=== PATIENT | female | born 1930 | race Caucasian/White ===

== ENCOUNTER 2018-12-07 08:54 | Inpatient (IN) | payer MEDICARE, MEDICAID ==
[~2018-12-07] VITALS: Ht 157.5 cm; Wt 85.3 kg
[~2018-12-07 08:54] MED LIST: ALBU2.5V13 NEB; AMLO10TA80 PO; ATOR10TA69 PO; CITA10TA9 PO; FURO40TA5 PO; LEVO250T2 PO; LEVO50TA8 PO; MEMA1CAP MT; METH4TAB PO; NONFORMULARY; QUET50TA PO; RIVA10TA PO; RIVA1PAT3 TP; TIOT18CA3 INH; levemir SQ
[2018-12-07 09:42] LABS: BASOPHILS % 0.4 % (0.0-2.0); EOSINOPHILS % 4.2 % (0.0-5.0); HEMATOCRIT. 37.8 % (36.0-48.0); HEMOGLOBIN. 12.4 g/dL (12.0-16.0); LYMPHOCYTES % 29.8 % (20.0-50.0); MEAN CORPUSCULAR HEMOGLOBIN 29.9 pg (28.0-32.0); MEAN CORPUSCULAR VOLUME 90.8 fL (81.0-99.0); MEAN PLATELET VOLUME 9.1 fl (7.4-10.4); MONOCYTES % 7.3 % (2.0-8.0); NEUTROPHILS % 58.3 % (40.0-76.0); PLATELET 168 x1000/uL (130-400); RED BLOOD CELL COUNT 4.17 mill/uL (4.2-5.4); RED CELL DISTRIBUTION WIDTH 15.8 % (11.6-14.6)
[2018-12-07 11:03] LABS: CHLORIDE 101 mEq/L (98-107)
[2018-12-07 13:49] VITALS: BP 117/49
[2018-12-07] MEDS ORDERED: DEXTROSE 50% WATER 50ML SYRINGE IV PRN (16:15)
[2018-12-07] MEDS ORDERED: IPRATROPIUM/ALBUTEROL 0.5-3(2.5)MG/3ML NEB HHN PRN (16:15)
[2018-12-07] MEDS ORDERED: ENOXAPARIN 40MG/0.4ML SYR SUBCUT SCH (16:15)
[2018-12-07] MEDS ORDERED: MORPHINE SULFATE 2 MG/ML CPJ (NOT FOR IM USE) IV PRN (16:15)
[2018-12-07] MEDS ORDERED: MAGNESIUM/ALUMINUM HYDROXIDE/SIMETHICONE 30ML UDC PO PRN (16:15)
[2018-12-07] MEDS ORDERED: ACETAMINOPHEN 325MG TABLET PO PRN (16:15)
[2018-12-07] MEDS ORDERED: CLONIDINE 0.1MG TABLET PO PRN (17:15)
[2018-12-07] MEDS ORDERED: ONDANSETRON HCL 4MG/2ML INJ IV PRN (17:15)
[2018-12-07] MEDS ORDERED: DIPHENHYDRAMINE 50MG/ML VIAL IV PRN (17:15)
[2018-12-07] MEDS: INSULIN LISPRO 100 UNITS/ML SUBCUT SCH ×2 (17:40→20:58)
[2018-12-07] MEDS: RIVAROXABAN 15 MG TABLET PO SCH (17:57)
[2018-12-07] MEDS: BLOOD SUGAR DIAGNOSTIC STRIP TEST SCH ×2 (18:06→20:58)
[2018-12-07 20:00] VITALS: BP 112/52
[2018-12-07] MEDS: SODIUM CHLORIDE 0.9% INJ 3ML FLUSH IVF SCH (21:42)
[2018-12-08] MEDS: ATORVASTATIN CALCIUM 10MG TABLET PO SCH ×2 (02:43→23:10)
[2018-12-08] MEDS: INSULIN GLARGINE UD 100 UNITS/ML SYR SUBCUT SCH ×2 (02:48→23:08)
[2018-12-08 04:00] VITALS: BP 130/45
[2018-12-08] MEDS: LEVOTHYROXINE SODIUM 50MCG TABLET PO SCH (07:15)
[2018-12-08] MEDS: SODIUM CHLORIDE 0.9% INJ 3ML FLUSH IVF SCH ×3 (07:15→23:11)
[2018-12-08] MEDS: INSULIN LISPRO 100 UNITS/ML SUBCUT SCH ×4 (07:21→23:07)
[2018-12-08] MEDS: BLOOD SUGAR DIAGNOSTIC STRIP TEST SCH ×4 (07:21→21:00)
[2018-12-08 08:00] VITALS: BP 121/68
[2018-12-08] MEDS: RIVASTIGMINE 9.5MG/24HR PATCH TD SCH (10:13)
[2018-12-08] MEDS: MEMANTINE HCL 5MG TABLET PO SCH (10:16)
[2018-12-08] MEDS: CITALOPRAM HYDROBROMIDE 10MG TABLET PO SCH (10:17)
[2018-12-08 12:00] VITALS: BP 146/56
[2018-12-08 16:00] VITALS: BP 132/64
[2018-12-08] MEDS: RIVAROXABAN 15 MG TABLET PO SCH (18:03)
[2018-12-08 20:00] VITALS: BP 143/72
[2018-12-09] VITALS: BP 149/69
[2018-12-09 04:00] VITALS: BP 122/75
[2018-12-09] MEDS: SODIUM CHLORIDE 0.9% INJ 3ML FLUSH IVF SCH (06:50)
[2018-12-09 07:54] VITALS: BP 131/80
[2018-12-09] MEDS: MEMANTINE HCL 5MG TABLET PO SCH (08:18)
[2018-12-09] MEDS: RIVASTIGMINE 9.5MG/24HR PATCH TD SCH (08:18)
[2018-12-09] MEDS: LEVOTHYROXINE SODIUM 50MCG TABLET PO SCH (08:18)
[2018-12-09] MEDS: CITALOPRAM HYDROBROMIDE 10MG TABLET PO SCH (08:18)
[2018-12-09] MEDS: BLOOD SUGAR DIAGNOSTIC STRIP TEST SCH ×2 (11:30→12:10)
[2018-12-09 12:00] VITALS: BP 130/70
[2018-12-09] MEDS: INSULIN LISPRO 100 UNITS/ML SUBCUT SCH ×2 (12:00→12:40)
[2018-12-09] MEDS ORDERED: LEVVL SQ ×2 (12:51)
[2018-12-09] MEDS ORDERED: AMLO-504 PO (12:57)
[2018-12-09] MEDS ORDERED: BRIN8DRO EACHEYE (12:57)
[2018-12-09] MEDS ORDERED: DOCU-150 PO (12:57)
[2018-12-09] MEDS ORDERED: CYCL30DR EACHEYE (12:57)
[2018-12-09] MEDS ORDERED: ALBU18HF2 IH (12:57)
[2018-12-09] MEDS ORDERED: BUDE6.9H INH (12:57)
[2018-12-09] MEDS ORDERED: OLOP2.5D6 EACHEYE (12:57)
[2018-12-09] MEDS ORDERED: FLUT15.88 BOTHNSTRLS (12:59)
[2018-12-09] MEDS ORDERED: LIRA0.6P SQ (12:59)
[2018-12-09] MEDS ORDERED: FISH PO (13:00)
[2018-12-09] MEDS ORDERED: MULT-1146 PO (13:00)
[2018-12-09 13:51] VITALS: BP 130/70
== END 2018-12-09 15:15 | disposition home or self-care (01) | DRG 203 ==
LOC: ER 09:07 → 8WST 11:27 → ENRESERV 12:23
PROVIDERS: ADMIT Internal Medicine; ATTEND Internal Medicine
DX: R07.89 Other chest pain (principal); I48.20 Chronic atrial fibrillation, unspecified; E11.9 Type 2 diabetes mellitus without complications; J44.9 Chronic obstructive pulmonary disease, unspecified; F03.90 Unspecified dementia, unspecified severity, without behavioral disturbance, psychotic disturbance, mood disturbance, and anxiety; R41.89 Other symptoms and signs involving cognitive functions and awareness; E03.9 Hypothyroidism, unspecified; E78.5 Hyperlipidemia, unspecified; E66.9 Obesity, unspecified; M19.90 Unspecified osteoarthritis, unspecified site; I10 Essential (primary) hypertension; F17.200 Nicotine dependence, unspecified, uncomplicated; Z82.49 Family history of ischemic heart disease and other diseases of the circulatory system; Z83.3 Family history of diabetes mellitus; Z87.01 Personal history of pneumonia (recurrent); F32.9 Major depressive disorder, single episode, unspecified; Z68.34 Body mass index [BMI] 34.0-34.9, adult; Z79.84 Long term (current) use of oral hypoglycemic drugs
CPT/HCPCS: 36415; 71045; 82962; 83880; 84484; 93005; 93306; 99285; J1815; J2270

== ENCOUNTER 2019-10-23 09:41 | Inpatient (IN) | payer MEDICARE, MEDICAID ==
[~2019-10-23] VITALS: Ht 157.5 cm; Wt 93.0 kg
[~2019-10-23 09:41] MED LIST changes: +ALBU18HF2 IH; -ALBU2.5V13 NEB; +AMLO-504 MT; +AMLO-504 PO; -AMLO10TA80 PO; +BRIN8DRO EACHEYE; +BUDE6.9H INH; -CITA10TA9 PO; +CYCL30DR EACHEYE; +CYCL30DR OP; +DOCU-150 PO; +DOCU-272 PO; +FISH PO; +FLUT15.844 BOTHNSTRLS; +GABA-529 PO; +HYDR-4135 MT; -LEVO250T2 PO; +LEVO50TA8 MT; +LEVVL SQ; +LIRA0.6P SQ; +LIRA0.6P2 SQ; +MEMA10TA55 PO; -MEMA1CAP MT; -METH4TAB PO; +MULT-1146 PO; +MULT-1203 PO; +OLOP2.5D6 EACHEYE; +OLOP2.5D6 OP; +QUET50TA21 PO; +RIVA1PAT3 TD; -RIVA1PAT3 TP; -TIOT18CA3 INH; +UMEC1DIS INH; -levemir SQ; +xarelto PO
[2019-10-23] MEDS ORDERED: PIPERACILLIN/TAZ 3.375G PREMIX 50 ML IV ONE (10:00)
[2019-10-23] MEDS ORDERED: VANCOMYCIN 1 G PREMIX 200 ML IV ONE (10:00)
[2019-10-23] MEDS ORDERED: PROPOFOL 10MG/ML 100ML 100 ML IV ONE ×2 (10:10→10:45)
[2019-10-23] MEDS ORDERED: ACETAMINOPHEN 650MG SUPP PR STA (10:33)
[2019-10-23] MEDS ORDERED: NOREPINEPHRINE 8MG/250ML PMX 250 ML IV STA (10:33)
[2019-10-23] MEDS ORDERED: SODIUM CHLORIDE 0.9% 1000ML BAG (SEPSIS BOLUS) IV ONE (10:45)
[2019-10-23 10:50] LABS: HEMATOCRIT. 28.1 % (36.0-48.0); HEMOGLOBIN. 9.2 g/dL (12.0-16.0); MEAN CORPUSCULAR VOLUME 94.7 fL (81.0-99.0); MEAN PLATELET VOLUME 9.1 fl (7.4-10.4); PLATELET 143 x1000/uL (130-400); RED BLOOD CELL COUNT 2.97 mill/uL (4.2-5.4); RED CELL DISTRIBUTION WIDTH 20.3 % (11.6-14.6)
[2019-10-23 10:57] LABS: CHLORIDE 108 mEq/L (98-107)
[2019-10-23 10:59] LABS: INR 1.2; PROTHROMBIN TIME 12.4 sec (9.6-11.0)
[2019-10-23 11:02] LABS: BG BASE EXCESS 13.1 mmol/L (-2.0-2.0); BG CARBOXYHEMOGLOBIN 0.1 % (0.5-1.5); BG DEOXYHEMOGLOBIN 1.1 % (0.0-5.0); BG HCO3 ACT 37.6 mmol/L (22.0-26.0); BG METHEMOGLOBIN 0.5 % (0.0-1.5); BG OXYGEN SATURATION 98.9 % (92.0-98.5); BG OXYHEMOGLOBIN 98.3 % (94.0-97.0); BG PCO2 48.9 mmHg (35.0-45.0); BG PH 7.504 (7.350-7.450); BG PO2 179.7 mmHg (75.0-100.0); BG SAMPLE SITE RIGHT BRACHIAL; BG TIDAL VOLUME(mL) 500 mL; BG TOTAL HEMOGLOBIN 8.9 g/dL (12.0-18.0); BG VENT MODE VENT - A/C; BG VENT RATE 16 set
[2019-10-23 11:12] LABS: CLARITY URINE CLEAR (CLEAR); COLOR URINE YELLOW (YELLOW); KETONES URINE NEGATIVE (NEGATIVE); LEUKOCYTE ESTERASE URINE 1+ (NEGATIVE); NITRITE URINE POSITIVE (NEGATIVE); OCCULT BLOOD URINE 2+ (NEGATIVE); PROTEIN URINE 1+ (NEGATIVE); SPECIFIC GRAVITY URINE 1.017 (1.005-1.030)
[2019-10-23 11:54] LABS: PLATELET ESTIMATE NORMAL
[2019-10-23] MEDS ORDERED: KCL 10MEQ/50ML PREMIX 50 ML IV SCH (12:00)
[2019-10-23] MEDS ORDERED: PIPERACILLIN/TAZ 3.375G PREMIX 50 ML IV SCH (13:15)
[2019-10-23] MEDS ORDERED: GUAIFENESIN 200MG/10ML SUGAR FREE UDC PO PRN (13:15)
[2019-10-23] MEDS ORDERED: PHENYLEPHRINE 50 MG in DEXT 5% WATER 245 ML IV PRN (13:15)
[2019-10-23] MEDS ORDERED: NITROGLYCERIN 0.4MG TABLET SL SL PRN (13:15)
[2019-10-23] MEDS ORDERED: ACETAMINOPHEN 325MG TABLET PO PRN ×2 (13:15)
[2019-10-23] MEDS ORDERED: IPRATROPIUM/ALBUTEROL 0.5-3(2.5)MG/3ML NEB NEB PRN (13:15)
[2019-10-23] MEDS ORDERED: ONDANSETRON HCL 4MG/2ML INJ IV PRN (13:15)
[2019-10-23] MEDS ORDERED: MAGNESIUM/ALUMINUM HYDROXIDE/SIMETHICONE 30ML UDC PO PRN (13:15)
[2019-10-23] MEDS ORDERED: DEXTROSE 50% WATER 50ML SYRINGE IV PRN (13:15)
[2019-10-23] MEDS ORDERED: DOCUSATE SODIUM 100MG CAPSULE PO PRN (13:15)
[2019-10-23 13:38] LABS: T4 FREE 1.2 ng/dL (0.76-1.46)
[2019-10-23] MEDS: BLOOD SUGAR DIAGNOSTIC STRIP TEST SCH ×3 (13:55→21:57)
[2019-10-23] MEDS: INSULIN LISPRO 100 UNITS/ML SUBCUT SCH ×3 (13:59→21:00)
[2019-10-23 14:46] LABS: FOLIC ACID (FOLATE) SERUM >20 ng/mL ng/mL (>5.38)
[2019-10-23 14:57] LABS: VITAMIN B12 SERUM 947 pg/mL (211-911)
[2019-10-23] MEDS: IPRATROPIUM/ALBUTEROL 0.5-3(2.5)MG/3ML NEB HHN SCH ×2 (16:05→20:10)
[2019-10-23] MEDS: ENOXAPARIN 30MG/0.3ML SYR SUBCUT SCH (17:02)
[2019-10-23] MEDS: PIPERACILLIN/TAZOBACTAM 2.25 G in DEXTROSE 5% WATER 50 ML IV SCH ×2 (17:10→23:51)
[2019-10-23] MEDS ORDERED: SODIUM CHLORIDE 0.9% 500 ML IV NR (18:26)
[2019-10-23] MEDS ORDERED: FUROSEMIDE 20MG/2ML VIAL IVP NR (18:26)
[2019-10-23] MEDS ORDERED: ALBUMIN HUMAN 25GM/100ML (25%) IV NR (19:00)
[2019-10-23] MEDS ORDERED: SODIUM CHLORIDE 0.9% 10ML VIAL ONE (20:12)
[2019-10-23] MEDS ORDERED: VECURONIUM BROMIDE 10 MG/VIAL IV ONE (20:12)
[2019-10-23] MEDS ORDERED: ETOMIDATE 2MG/ML 10ML VIAL IV ONE (20:12)
[2019-10-23] MEDS: ASCORBIC ACID 500 MG TABLET PO SCH (21:00)
[2019-10-23] MEDS: PHENYLEPHRINE 50 MG in DEXT 5% WATER 245 ML IV PRN (23:52)
[2019-10-24] VITALS (64 sets, daily range): BP systolic 73–126; BP diastolic 39–70
[2019-10-24] MEDS: PIPERACILLIN/TAZOBACTAM 2.25 G in DEXTROSE 5% WATER 50 ML IV SCH ×4 (03:00→21:22)
[2019-10-24] MEDS: IPRATROPIUM/ALBUTEROL 0.5-3(2.5)MG/3ML NEB HHN SCH ×5 (04:32→19:40)
[2019-10-24] MEDS: BLOOD SUGAR DIAGNOSTIC STRIP TEST SCH ×4 (06:30→21:00)
[2019-10-24] MEDS: INSULIN LISPRO 100 UNITS/ML SUBCUT SCH ×5 (07:00→23:00)
[2019-10-24] MEDS ORDERED: VANCOMYCIN 750 MG PREMIX 150 ML IV SCH (08:00)
[2019-10-24] MEDS ORDERED: INSULIN LISPRO 100 UNITS/ML SUBCUT NR (08:04)
[2019-10-24] MEDS: PROPOFOL 10MG/ML 100ML 100 ML IV SCH ×2 (09:00→13:16)
[2019-10-24 09:34] LABS: BG CARBOXYHEMOGLOBIN 0.3 % (0.5-1.5); BG FRACTION INSPIRED OXYGEN 60; BG HCO3 ACT 30.8 mmol/L (22.0-26.0); BG METHEMOGLOBIN 0.1 % (0.0-1.5); BG OXYHEMOGLOBIN 98.6 % (94.0-97.0); BG PCO2 31.9 mmHg (35.0-45.0); BG PH 7.603 (7.350-7.450); BG PO2 227.2 mmHg (75.0-100.0); BG SAMPLE SITE RIGHT RADIAL; BG TIDAL VOLUME(mL) 500 mL; BG TOTAL HEMOGLOBIN 10.1 g/dL (12.0-18.0); BG VENT MODE VENT - A/C; BG VENT RATE 14 set
[2019-10-24] MEDS: ASPIRIN 81MG EC TABLET PO SCH (10:10)
[2019-10-24] MEDS: ASCORBIC ACID 500 MG TABLET PO SCH ×2 (10:10→21:00)
[2019-10-24] MEDS: ZINC SULFATE 220 MG ( 50 ) CAPSULE PO SCH (10:10)
[2019-10-24] MEDS: PANTOPRAZOLE SODIUM 40 MG/VIAL IV SCH (10:10)
[2019-10-24] MEDS: ENOXAPARIN 30MG/0.3ML SYR SUBCUT SCH (10:11)
[2019-10-24 10:12] LABS: HEMATOCRIT. 30.6 % (36.0-48.0); HEMOGLOBIN. 9.8 g/dL (12.0-16.0); MEAN CORPUSCULAR HEMOGLOBIN 29.6 pg (28.0-32.0); MEAN CORPUSCULAR VOLUME 92.7 fL (81.0-99.0); MEAN PLATELET VOLUME 9.1 fl (7.4-10.4); PLATELET 112 x1000/uL (130-400); RED CELL DISTRIBUTION WIDTH 20.3 % (11.6-14.6)
[2019-10-24 10:19] LABS: CHLORIDE 108 mEq/L (98-107)
[2019-10-24 10:25] LABS: PHOSPHORUS 2.4 mg/dL (2.5-4.9)
[2019-10-24] MEDS ORDERED: SODIUM CHLORIDE 0.9% 500 ML IV ONE (10:30)
[2019-10-24 11:06] LABS: PLATELET ESTIMATE SLIGHTLY DECREASED
[2019-10-24] MEDS ORDERED: POTASSIUM CHLORIDE INJ 40 MEQ in DEXT 5% WATER 500 ML IV NR ×2 (12:00→16:00)
[2019-10-24] MEDS ORDERED: DOPAMINE 800MG PREMIX (DOUBLE) 250 ML IV PRN (12:30)
[2019-10-24] MEDS: PHENYLEPHRINE 50 MG in DEXT 5% WATER 245 ML IV PRN (16:16)
[2019-10-24] MEDS: PROPOFOL 10MG/ML 100ML 100 ML IV PRN (17:18)
[2019-10-24] MEDS ORDERED: POTASSIUM CHLORIDE 20MEQ TABLET SR PO NR (17:45)
[2019-10-24] MEDS ORDERED: VANCOMYCIN 1 G PREMIX 200 ML IV SCH (18:00)
[2019-10-25] VITALS (109 sets, daily range): BP systolic 59–137; BP diastolic 30–78
[2019-10-25] MEDS: IPRATROPIUM/ALBUTEROL 0.5-3(2.5)MG/3ML NEB HHN SCH ×6 (00:03→19:46)
[2019-10-25] MEDS: PIPERACILLIN/TAZOBACTAM 2.25 G in DEXTROSE 5% WATER 50 ML IV SCH ×4 (03:00→22:06)
[2019-10-25] MEDS: PROPOFOL 10MG/ML 100ML 100 ML IV PRN ×4 (05:00→22:46)
[2019-10-25] MEDS: PHENYLEPHRINE 50 MG in DEXT 5% WATER 245 ML IV PRN ×3 (05:41→19:27)
[2019-10-25] MEDS: INSULIN LISPRO 100 UNITS/ML SUBCUT SCH ×4 (06:52→22:33)
[2019-10-25] MEDS ORDERED: POTASSIUM CHLORIDE INJ 40 MEQ in DEXT 5% WATER 500 ML IV NR (07:00)
[2019-10-25] MEDS: BLOOD SUGAR DIAGNOSTIC STRIP TEST SCH ×4 (07:50→21:00)
[2019-10-25 09:10] LABS: HEMOGLOBIN 9.1 g/dL (12.0-16.0); MEAN CORPUSCULAR HEMOGLOBIN 29.3 pg (28.0-32.0); MEAN CORPUSCULAR VOLUME 92.9 fL (81.0-99.0); PLATELET 96 x1000/uL (130-400); RED BLOOD CELL COUNT 3.12 mill/uL (4.2-5.4); RED CELL DISTRIBUTION WIDTH 20.5 % (11.6-14.6)
[2019-10-25] MEDS: ZINC SULFATE 220 MG ( 50 ) CAPSULE PO SCH (09:32)
[2019-10-25] MEDS: ASPIRIN 81MG EC TABLET PO SCH (09:32)
[2019-10-25] MEDS: PANTOPRAZOLE SODIUM 40 MG/VIAL IV SCH (09:32)
[2019-10-25] MEDS: ASCORBIC ACID 500 MG TABLET PO SCH ×2 (09:32→22:07)
[2019-10-25] MEDS: ENOXAPARIN 30MG/0.3ML SYR SUBCUT SCH (09:32)
[2019-10-25 10:43] LABS: BG BASE EXCESS 1.5 mmol/L (-2.0-2.0); BG CARBOXYHEMOGLOBIN 0.2 % (0.5-1.5); BG DEOXYHEMOGLOBIN 1.7 % (0.0-5.0); BG FRACTION INSPIRED OXYGEN 40; BG HCO3 ACT 24.1 mmol/L (22.0-26.0); BG METHEMOGLOBIN 0.5 % (0.0-1.5); BG OXYGEN SATURATION 98.3 % (92.0-98.5); BG OXYHEMOGLOBIN 97.6 % (94.0-97.0); BG PCO2 30.8 mmHg (35.0-45.0); BG PH 7.512 (7.350-7.450); BG PO2 145.2 mmHg (75.0-100.0); BG SAMPLE SITE RIGHT RADIAL; BG TIDAL VOLUME(mL) 500 mL; BG TOTAL HEMOGLOBIN 9.9 g/dL (12.0-18.0); BG VENT MODE VENT - A/C; BG VENT RATE 14 set
[2019-10-25] MEDS ORDERED: INSULIN GLARGINE UD 100 UNITS/ML SYR SUBCUT SCH (12:00)
[2019-10-25] MEDS ORDERED: VANCOMYCIN 750 MG PREMIX 150 ML IV SCH (14:30)
[2019-10-25] MEDS: VANCOMYCIN 750 MG PREMIX 150 ML IV SCH (18:09)
[2019-10-25] MEDS ORDERED: POTASSIUM PHOS,M-BASIC-D-BASIC 15 MMOL in DEXT 5% WATER 245 ML IV NR (20:00)
[2019-10-26] VITALS (91 sets, daily range): BP systolic 87–136; BP diastolic 37–80
[2019-10-26] MEDS: IPRATROPIUM/ALBUTEROL 0.5-3(2.5)MG/3ML NEB HHN SCH ×7 (00:01→23:53)
[2019-10-26] MEDS: PHENYLEPHRINE 50 MG in DEXT 5% WATER 245 ML IV PRN ×2 (00:55→08:46)
[2019-10-26] MEDS: PIPERACILLIN/TAZOBACTAM 2.25 G in DEXTROSE 5% WATER 50 ML IV SCH ×2 (03:32→08:43)
[2019-10-26] MEDS: PROPOFOL 10MG/ML 100ML 100 ML IV PRN ×2 (03:58→10:29)
[2019-10-26 05:59] LABS: BASOPHILS % 0.2 % (0.0-2.0); EOSINOPHILS % 3.6 % (0.0-5.0); HEMATOCRIT. 25.5 % (36.0-48.0); HEMOGLOBIN. 8.3 g/dL (12.0-16.0); LYMPHOCYTES % 12.8 % (20.0-50.0); MEAN CORPUSCULAR HEMOGLOBIN 30.1 pg (28.0-32.0); MEAN CORPUSCULAR VOLUME 92.4 fL (81.0-99.0); MEAN PLATELET VOLUME 11.2 fl (7.4-10.4); MONOCYTES % 4.9 % (2.0-8.0); NEUTROPHILS % 78.5 % (40.0-76.0); PLATELET 92 x1000/uL (130-400); RED BLOOD CELL COUNT 2.75 mill/uL (4.2-5.4); RED CELL DISTRIBUTION WIDTH 21.4 % (11.6-14.6)
[2019-10-26 06:09] LABS: PHOSPHORUS 3.6 mg/dL (2.5-4.9)
[2019-10-26] MEDS: BLOOD SUGAR DIAGNOSTIC STRIP TEST SCH ×4 (06:49→21:32)
[2019-10-26] MEDS: INSULIN LISPRO 100 UNITS/ML SUBCUT SCH ×4 (06:55→21:44)
[2019-10-26] MEDS: ENOXAPARIN 30MG/0.3ML SYR SUBCUT SCH (08:33)
[2019-10-26] MEDS: ASPIRIN 81MG EC TABLET PO SCH (08:43)
[2019-10-26] MEDS: PANTOPRAZOLE SODIUM 40 MG/VIAL IV SCH (08:43)
[2019-10-26] MEDS: ASCORBIC ACID 500 MG TABLET PO SCH ×2 (08:43→21:44)
[2019-10-26] MEDS: ZINC SULFATE 220 MG ( 50 ) CAPSULE PO SCH (08:43)
[2019-10-26 09:59] LABS: BG BASE EXCESS 2.2 mmol/L (-2.0-2.0); BG CARBOXYHEMOGLOBIN 0.3 % (0.5-1.5); BG DEOXYHEMOGLOBIN 0.9 % (0.0-5.0); BG FRACTION INSPIRED OXYGEN 35; BG HCO3 ACT 26.5 mmol/L (22.0-26.0); BG METHEMOGLOBIN 0.4 % (0.0-1.5); BG OXYGEN SATURATION 99.1 % (92.0-98.5); BG OXYHEMOGLOBIN 98.4 % (94.0-97.0); BG PCO2 39.5 mmHg (35.0-45.0); BG PH 7.444 (7.350-7.450); BG PO2 152.6 mmHg (75.0-100.0); BG SAMPLE SITE RIGHT RADIAL; BG TIDAL VOLUME(mL) 500 mL; BG TOTAL HEMOGLOBIN 8.9 g/dL (12.0-18.0); BG VENT MODE VENT - A/C; BG VENT RATE 10 set
[2019-10-26] MEDS ORDERED: POTASSIUM CHLORIDE INJ 40 MEQ in DEXT 5% WATER 250 ML IV SCH (10:00)
[2019-10-26] MEDS ORDERED: MIDAZOLAM HCL 100 MG in DEXT 5% WATER 80 ML IV PRN (11:00)
[2019-10-26] MEDS ORDERED: SODIUM CHLORIDE 0.9% 500 ML IV ONE (13:15)
[2019-10-26] MEDS: FENTANYL CITRATE/PF 1,000 MCG in SODIUM CHLORIDE 0.9% 80 ML IV PRN (13:57)
[2019-10-26] MEDS: METRONIDAZOLE 500MG TABLET PO SCH (15:44)
[2019-10-26] MEDS: CEFTAZIDIME PENTAHYDRATE 1 G in DEXTROSE 5% WATER 50 ML IV SCH (17:42)
[2019-10-26] MEDS: VANCOMYCIN 750 MG PREMIX 150 ML IV SCH (18:46)
[2019-10-27] VITALS (66 sets, daily range): BP systolic 90–164; BP diastolic 32–78
[2019-10-27] MEDS: METRONIDAZOLE 500MG TABLET PO SCH ×3 (01:48→22:39)
[2019-10-27] MEDS: IPRATROPIUM/ALBUTEROL 0.5-3(2.5)MG/3ML NEB HHN SCH ×5 (03:57→20:26)
[2019-10-27] MEDS: CEFTAZIDIME PENTAHYDRATE 1 G in DEXTROSE 5% WATER 50 ML IV SCH ×2 (04:04→16:00)
[2019-10-27 05:44] LABS: BASOPHILS % 0.3 % (0.0-2.0); EOSINOPHILS % 2.2 % (0.0-5.0); HEMATOCRIT. 24.4 % (36.0-48.0); HEMOGLOBIN. 7.9 g/dL (12.0-16.0); MEAN CORPUSCULAR HEMOGLOBIN 30.2 pg (28.0-32.0); MEAN CORPUSCULAR VOLUME 93.2 fL (81.0-99.0); MEAN PLATELET VOLUME 9.6 fl (7.4-10.4); NEUTROPHILS % 82.5 % (40.0-76.0); PLATELET 88 x1000/uL (130-400); RED BLOOD CELL COUNT 2.62 mill/uL (4.2-5.4); RED CELL DISTRIBUTION WIDTH 21.2 % (11.6-14.6)
[2019-10-27 05:50] LABS: CHLORIDE 96 mEq/L (98-107)
[2019-10-27] MEDS: BLOOD SUGAR DIAGNOSTIC STRIP TEST SCH ×3 (06:53→17:50)
[2019-10-27] MEDS: INSULIN LISPRO 100 UNITS/ML SUBCUT SCH ×4 (07:00→22:45)
[2019-10-27 08:24] LABS: BG BASE EXCESS 1.8 mmol/L (-2.0-2.0); BG CARBOXYHEMOGLOBIN 0.3 % (0.5-1.5); BG DEOXYHEMOGLOBIN 1.1 % (0.0-5.0); BG FRACTION INSPIRED OXYGEN 35; BG HCO3 ACT 27.5 mmol/L (22.0-26.0); BG METHEMOGLOBIN 0.4 % (0.0-1.5); BG OXYGEN SATURATION 98.9 % (92.0-98.5); BG OXYHEMOGLOBIN 98.2 % (94.0-97.0); BG PCO2 48.6 mmHg (35.0-45.0); BG PO2 149.9 mmHg (75.0-100.0); BG PRESSURE SUPPORT 12; BG SAMPLE SITE RIGHT RADIAL; BG TIDAL VOLUME(mL) 500 mL; BG TOTAL HEMOGLOBIN 8.6 g/dL (12.0-18.0); BG VENT MODE VENT - SIMV; BG VENT RATE 8 set
[2019-10-27] MEDS: FENTANYL CITRATE/PF 1,000 MCG in SODIUM CHLORIDE 0.9% 80 ML IV PRN (08:26)
[2019-10-27] MEDS: ASPIRIN 81MG EC TABLET PO SCH (09:00)
[2019-10-27] MEDS: ZINC SULFATE 220 MG ( 50 ) CAPSULE PO SCH (09:27)
[2019-10-27] MEDS: ASCORBIC ACID 500 MG TABLET PO SCH ×2 (09:27→22:39)
[2019-10-27] MEDS: PANTOPRAZOLE SODIUM 40 MG/VIAL IV SCH (09:28)
[2019-10-27] MEDS: ENOXAPARIN 30MG/0.3ML SYR SUBCUT SCH (09:28)
[2019-10-27] MEDS: VANCOMYCIN 750 MG PREMIX 150 ML IV SCH (19:41)
[2019-10-28] VITALS (37 sets, daily range): BP systolic 88–151; BP diastolic 31–94
[2019-10-28] MEDS: IPRATROPIUM/ALBUTEROL 0.5-3(2.5)MG/3ML NEB HHN SCH ×6 (00:29→20:10)
[2019-10-28] MEDS: INSULIN LISPRO 100 UNITS/ML SUBCUT SCH ×4 (00:39→17:08)
[2019-10-28] MEDS: BLOOD SUGAR DIAGNOSTIC STRIP TEST SCH ×4 (00:40→17:07)
[2019-10-28] MEDS: CEFTAZIDIME PENTAHYDRATE 1 G in DEXTROSE 5% WATER 50 ML IV SCH ×2 (04:21→15:27)
[2019-10-28 06:24] LABS: HEMATOCRIT. 22.5 % (36.0-48.0); HEMOGLOBIN. 7.3 g/dL (12.0-16.0); MEAN CORPUSCULAR HEMOGLOBIN 30.1 pg (28.0-32.0); MEAN CORPUSCULAR VOLUME 93.1 fL (81.0-99.0); MEAN PLATELET VOLUME 9.2 fl (7.4-10.4); PLATELET 108 x1000/uL (130-400); RED BLOOD CELL COUNT 2.42 mill/uL (4.2-5.4); RED CELL DISTRIBUTION WIDTH 20.8 % (11.6-14.6)
[2019-10-28] MEDS: PANTOPRAZOLE SODIUM 40 MG/VIAL IV SCH (07:53)
[2019-10-28] MEDS: ASCORBIC ACID 500 MG TABLET PO SCH ×2 (07:53→22:13)
[2019-10-28] MEDS: METRONIDAZOLE 500MG TABLET PO SCH ×2 (07:54→22:13)
[2019-10-28] MEDS: ASPIRIN 81MG EC TABLET PO SCH (07:54)
[2019-10-28] MEDS: ZINC SULFATE 220 MG ( 50 ) CAPSULE PO SCH (07:54)
[2019-10-28] MEDS: ENOXAPARIN 30MG/0.3ML SYR SUBCUT SCH (07:54)
[2019-10-28] MEDS ORDERED: DOCUSATE SODIUM SUGAR FREE 100MG/10ML UDC GT PRN (08:45)
[2019-10-28 09:00] LABS: BG BASE EXCESS 4.4 mmol/L (-2.0-2.0); BG CARBOXYHEMOGLOBIN 0.7 % (0.5-1.5); BG DEOXYHEMOGLOBIN 1.3 % (0.0-5.0); BG FRACTION INSPIRED OXYGEN 35; BG HCO3 ACT 29.6 mmol/L (22.0-26.0); BG METHEMOGLOBIN 0.5 % (0.0-1.5); BG OXYGEN SATURATION 98.7 % (92.0-98.5); BG OXYHEMOGLOBIN 97.5 % (94.0-97.0); BG PCO2 47.9 mmHg (35.0-45.0); BG PH 7.409 (7.350-7.450); BG PO2 134.2 mmHg (75.0-100.0); BG SAMPLE SITE RIGHT BRACHIAL; BG TIDAL VOLUME(mL) 500 mL; BG VENT MODE VENT - A/C; BG VENT RATE 12 set
[2019-10-28 09:05] LABS: PLATELET ESTIMATE SLIGHTLY DECREASED
[2019-10-28 13:02] LABS: BG BASE EXCESS 3.8 mmol/L (-2.0-2.0); BG CARBOXYHEMOGLOBIN 0.5 % (0.5-1.5); BG DEOXYHEMOGLOBIN 1.6 % (0.0-5.0); BG FRACTION INSPIRED OXYGEN 35; BG HCO3 ACT 29.2 mmol/L (22.0-26.0); BG METHEMOGLOBIN 0.5 % (0.0-1.5); BG OXYGEN SATURATION 98.4 % (92.0-98.5); BG OXYHEMOGLOBIN 97.4 % (94.0-97.0); BG PCO2 48.4 mmHg (35.0-45.0); BG PH 7.398 (7.350-7.450); BG PO2 115.7 mmHg (75.0-100.0); BG PRESSURE SUPPORT 12; BG SAMPLE SITE RIGHT BRACHIAL; BG TIDAL VOLUME(mL) 500 mL; BG TOTAL HEMOGLOBIN 8.2 g/dL (12.0-18.0); BG VENT MODE VENT - SIMV; BG VENT RATE 8 set
[2019-10-28] MEDS: VANCOMYCIN 750 MG PREMIX 150 ML IV SCH (17:07)
[2019-10-29] VITALS (24 sets, daily range): BP systolic 97–166; BP diastolic 53–119
[2019-10-29] MEDS: INSULIN LISPRO 100 UNITS/ML SUBCUT SCH ×4 (00:13→17:29)
[2019-10-29] MEDS: BLOOD SUGAR DIAGNOSTIC STRIP TEST SCH ×5 (00:15→23:30)
[2019-10-29] MEDS: IPRATROPIUM/ALBUTEROL 0.5-3(2.5)MG/3ML NEB HHN SCH ×7 (00:29→23:51)
[2019-10-29] MEDS: CEFTAZIDIME PENTAHYDRATE 1 G in DEXTROSE 5% WATER 50 ML IV SCH ×2 (04:11→16:20)
[2019-10-29 05:02] LABS: HEMATOCRIT. 22.9 % (36.0-48.0); HEMOGLOBIN. 7.5 g/dL (12.0-16.0); MEAN CORPUSCULAR HEMOGLOBIN 30.6 pg (28.0-32.0); MEAN CORPUSCULAR VOLUME 93.9 fL (81.0-99.0); MEAN PLATELET VOLUME 8.8 fl (7.4-10.4); PLATELET 137 x1000/uL (130-400); RED BLOOD CELL COUNT 2.44 mill/uL (4.2-5.4); RED CELL DISTRIBUTION WIDTH 21.5 % (11.6-14.6)
[2019-10-29 05:32] LABS: PHOSPHORUS 3.3 mg/dL (2.5-4.9)
[2019-10-29] MEDS: METRONIDAZOLE 500MG TABLET PO SCH ×2 (08:24→21:03)
[2019-10-29] MEDS: ASPIRIN 81MG EC TABLET PO SCH (08:24)
[2019-10-29] MEDS: PANTOPRAZOLE SODIUM 40 MG/VIAL IV SCH (08:24)
[2019-10-29] MEDS: ENOXAPARIN 30MG/0.3ML SYR SUBCUT SCH (08:25)
[2019-10-29] MEDS: ZINC SULFATE 220 MG ( 50 ) CAPSULE PO SCH (08:25)
[2019-10-29] MEDS: ASCORBIC ACID 500 MG TABLET PO SCH ×2 (08:25→21:03)
[2019-10-29] MEDS ORDERED: FUROSEMIDE 40MG/4ML VIAL IVP NR (08:30)
[2019-10-29 09:36] LABS: BG BASE EXCESS 4.9 mmol/L (-2.0-2.0); BG CARBOXYHEMOGLOBIN 0.9 % (0.5-1.5); BG DEOXYHEMOGLOBIN 1.7 % (0.0-5.0); BG FRACTION INSPIRED OXYGEN 35; BG HCO3 ACT 30.3 mmol/L (22.0-26.0); BG METHEMOGLOBIN 0.5 % (0.0-1.5); BG OXYGEN SATURATION 98.3 % (92.0-98.5); BG OXYHEMOGLOBIN 96.9 % (94.0-97.0); BG PCO2 50.1 mmHg (35.0-45.0); BG PO2 111.9 mmHg (75.0-100.0); BG PRESSURE SUPPORT 12; BG SAMPLE SITE RIGHT BRACHIAL; BG TIDAL VOLUME(mL) 500 mL; BG TOTAL HEMOGLOBIN 8.4 g/dL (12.0-18.0); BG VENT MODE VENT - SIMV; BG VENT RATE 6 set
[2019-10-29 10:59] LABS: PLATELET ESTIMATE NORMAL
[2019-10-29 13:27] LABS: BG BASE EXCESS 6.8 mmol/L (-2.0-2.0); BG CARBOXYHEMOGLOBIN 0.5 % (0.5-1.5); BG DEOXYHEMOGLOBIN 1.9 % (0.0-5.0); BG FRACTION INSPIRED OXYGEN 35; BG HCO3 ACT 32.5 mmol/L (22.0-26.0); BG METHEMOGLOBIN 0.4 % (0.0-1.5); BG OXYGEN SATURATION 98.1 % (92.0-98.5); BG OXYHEMOGLOBIN 97.2 % (94.0-97.0); BG PCO2 53.3 mmHg (35.0-45.0); BG PH 7.403 (7.350-7.450); BG PO2 111.4 mmHg (75.0-100.0); BG PRESSURE SUPPORT 12; BG SAMPLE SITE RIGHT BRACHIAL; BG TIDAL VOLUME(mL) 500 mL; BG TOTAL HEMOGLOBIN 8.5 g/dL (12.0-18.0); BG VENT MODE VENT - SIMV; BG VENT RATE 4 set
[2019-10-29] MEDS: LORAZEPAM 2MG/ML CPJ IM PRN (23:31)
[2019-10-30] VITALS (29 sets, daily range): BP systolic 73–183; BP diastolic 29–95
[2019-10-30] MEDS: INSULIN LISPRO 100 UNITS/ML SUBCUT SCH ×4 (00:22→18:04)
[2019-10-30] MEDS: IPRATROPIUM/ALBUTEROL 0.5-3(2.5)MG/3ML NEB HHN SCH ×5 (03:52→20:44)
[2019-10-30] MEDS: CEFTAZIDIME PENTAHYDRATE 1 G in DEXTROSE 5% WATER 50 ML IV SCH ×2 (04:44→16:52)
[2019-10-30] MEDS: MORPHINE SULFATE 2 MG/ML CPJ (NOT FOR IM USE) IV PRN ×2 (04:49→23:39)
[2019-10-30] MEDS: VANCOMYCIN 1 G PREMIX 200 ML IV SCH (05:00)
[2019-10-30 05:37] LABS: HEMOGLOBIN. 7.4 g/dL (12.0-16.0); MEAN CORPUSCULAR HEMOGLOBIN 30.4 pg (28.0-32.0); MEAN CORPUSCULAR VOLUME 94.8 fL (81.0-99.0); MEAN PLATELET VOLUME 9.2 fl (7.4-10.4); PLATELET 139 x1000/uL (130-400); RED BLOOD CELL COUNT 2.42 mill/uL (4.2-5.4); RED CELL DISTRIBUTION WIDTH 21.8 % (11.6-14.6)
[2019-10-30] MEDS: BLOOD SUGAR DIAGNOSTIC STRIP TEST SCH ×3 (06:00→18:04)
[2019-10-30 07:17] LABS: NUCLEATED RED BLOOD CELLS 4 /100 WBC; PLATELET ESTIMATE NORMAL
[2019-10-30] MEDS: ASCORBIC ACID 500 MG TABLET PO SCH ×2 (09:23→20:50)
[2019-10-30] MEDS: ZINC SULFATE 220 MG ( 50 ) CAPSULE PO SCH (09:23)
[2019-10-30] MEDS: PANTOPRAZOLE SODIUM 40 MG/VIAL IV SCH (09:23)
[2019-10-30] MEDS: ASPIRIN 81MG TABLET PEG SCH (09:23)
[2019-10-30] MEDS: METRONIDAZOLE 500MG TABLET PO SCH ×2 (09:23→20:50)
[2019-10-30] MEDS: ENOXAPARIN 30MG/0.3ML SYR SUBCUT SCH (09:24)
[2019-10-30 11:51] LABS: BG BASE EXCESS 4.4 mmol/L (-2.0-2.0); BG CARBOXYHEMOGLOBIN 0.4 % (0.5-1.5); BG DEOXYHEMOGLOBIN 4.3 % (0.0-5.0); BG FRACTION INSPIRED OXYGEN 35; BG HCO3 ACT 29.5 mmol/L (22.0-26.0); BG METHEMOGLOBIN 0.1 % (0.0-1.5); BG OXYGEN SATURATION 95.7 % (92.0-98.5); BG OXYHEMOGLOBIN 95.2 % (94.0-97.0); BG PCO2 46.9 mmHg (35.0-45.0); BG PH 7.416 (7.350-7.450); BG SAMPLE SITE RIGHT RADIAL; BG TOTAL HEMOGLOBIN 8.3 g/dL (12.0-18.0)
[2019-10-30] MEDS ORDERED: DIPHENOXYLATE/ATROPINE 2.5/0.025MG TABLET PO PRN (15:30)
[2019-10-30] MEDS: LORAZEPAM 2MG/ML CPJ IM PRN (17:27)
[2019-10-31] VITALS (31 sets, daily range): BP systolic 115–181; BP diastolic 61–94
[2019-10-31] MEDS: IPRATROPIUM/ALBUTEROL 0.5-3(2.5)MG/3ML NEB HHN SCH ×6 (00:27→20:15)
[2019-10-31] MEDS: BLOOD SUGAR DIAGNOSTIC STRIP TEST SCH ×5 (01:50→23:53)
[2019-10-31] MEDS: INSULIN LISPRO 100 UNITS/ML SUBCUT SCH ×4 (02:09→18:03)
[2019-10-31] MEDS: CEFTAZIDIME PENTAHYDRATE 1 G in DEXTROSE 5% WATER 50 ML IV SCH ×2 (04:00→15:47)
[2019-10-31 06:02] LABS: HEMATOCRIT. 23.6 % (36.0-48.0); HEMOGLOBIN. 7.6 g/dL (12.0-16.0); MEAN CORPUSCULAR HEMOGLOBIN 30.8 pg (28.0-32.0); MEAN PLATELET VOLUME 8.4 fl (7.4-10.4); PLATELET 191 x1000/uL (130-400); RED BLOOD CELL COUNT 2.46 mill/uL (4.2-5.4); RED CELL DISTRIBUTION WIDTH 22.3 % (11.6-14.6)
[2019-10-31] MEDS: MORPHINE SULFATE 2 MG/ML CPJ (NOT FOR IM USE) IV PRN (06:10)
[2019-10-31 07:07] LABS: NUCLEATED RED BLOOD CELLS 3 /100 WBC
[2019-10-31 07:08] LABS: PLATELET ESTIMATE NORMAL
[2019-10-31] MEDS: ASPIRIN 81MG TABLET PEG SCH (09:10)
[2019-10-31] MEDS: METRONIDAZOLE 500MG TABLET PO SCH (09:10)
[2019-10-31] MEDS: ENOXAPARIN 30MG/0.3ML SYR SUBCUT SCH (09:10)
[2019-10-31] MEDS: PANTOPRAZOLE SODIUM 40 MG/VIAL IV SCH (09:10)
[2019-10-31] MEDS: ZINC SULFATE 220 MG ( 50 ) CAPSULE PO SCH (09:10)
[2019-10-31] MEDS: ASCORBIC ACID 500 MG TABLET PO SCH ×2 (09:10→21:20)
[2019-10-31] MEDS: LORAZEPAM 2MG/ML CPJ IM PRN ×2 (15:16→22:55)
[2019-10-31] MEDS: CLONIDINE 0.1MG TABLET PO PRN (15:47)
[2019-10-31] MEDS: VANCOMYCIN 1 G PREMIX 200 ML IV SCH (16:35)
[2019-10-31] MEDS: HYDRALAZINE HCL 25MG TABLET PO SCH (21:21)
[2019-11-01] VITALS (12 sets, daily range): BP systolic 135–168; BP diastolic 58–107
[2019-11-01] MEDS: INSULIN LISPRO 100 UNITS/ML SUBCUT SCH ×4 (00:18→18:29)
[2019-11-01] MEDS: IPRATROPIUM/ALBUTEROL 0.5-3(2.5)MG/3ML NEB HHN SCH ×4 (01:08→22:09)
[2019-11-01] MEDS: CEFTAZIDIME PENTAHYDRATE 1 G in DEXTROSE 5% WATER 50 ML IV SCH ×2 (03:26→15:00)
[2019-11-01] MEDS: HYDRALAZINE HCL 25MG TABLET PO SCH ×3 (05:12→21:04)
[2019-11-01 06:15] LABS: HEMATOCRIT. 26.2 % (36.0-48.0); HEMOGLOBIN. 8.4 g/dL (12.0-16.0); MEAN CORPUSCULAR HEMOGLOBIN 30.7 pg (28.0-32.0); MEAN CORPUSCULAR VOLUME 95.8 fL (81.0-99.0); MEAN PLATELET VOLUME 8.6 fl (7.4-10.4); PLATELET 220 x1000/uL (130-400); RED BLOOD CELL COUNT 2.74 mill/uL (4.2-5.4); RED CELL DISTRIBUTION WIDTH 22.8 % (11.6-14.6)
[2019-11-01] MEDS: BLOOD SUGAR DIAGNOSTIC STRIP TEST SCH ×3 (06:15→18:24)
[2019-11-01] MEDS: PANTOPRAZOLE SODIUM 40 MG/VIAL IV SCH (08:43)
[2019-11-01] MEDS: ASPIRIN 81MG TABLET PEG SCH (08:43)
[2019-11-01] MEDS: ZINC SULFATE 220 MG ( 50 ) CAPSULE PO SCH (08:44)
[2019-11-01] MEDS: ASCORBIC ACID 500 MG TABLET PO SCH ×2 (08:44→20:52)
[2019-11-01] MEDS: ENOXAPARIN 30MG/0.3ML SYR SUBCUT SCH (08:45)
[2019-11-01] MEDS: LORAZEPAM 2MG/ML CPJ IM PRN ×2 (08:45→20:52)
[2019-11-01] MEDS ORDERED: AMLODIPINE 5MG TABLET PO SCH (10:15)
[2019-11-01 13:53] LABS: NUCLEATED RED BLOOD CELLS 1 /100 WBC; PLATELET ESTIMATE NORMAL
[2019-11-02] VITALS (12 sets, daily range): BP systolic 142–177; BP diastolic 64–90
[2019-11-02] MEDS: BLOOD SUGAR DIAGNOSTIC STRIP TEST SCH ×4 (00:11→17:12)
[2019-11-02] MEDS: INSULIN LISPRO 100 UNITS/ML SUBCUT SCH ×4 (00:11→17:15)
[2019-11-02] MEDS: CLONIDINE 0.1MG TABLET PO PRN ×2 (00:29→06:12)
[2019-11-02] MEDS: MORPHINE SULFATE 2 MG/ML CPJ (NOT FOR IM USE) IV PRN (00:29)
[2019-11-02] MEDS: IPRATROPIUM/ALBUTEROL 0.5-3(2.5)MG/3ML NEB HHN SCH ×5 (01:20→16:53)
[2019-11-02] MEDS: LORAZEPAM 2MG/ML CPJ IM PRN (01:43)
[2019-11-02] MEDS: CEFTAZIDIME PENTAHYDRATE 1 G in DEXTROSE 5% WATER 50 ML IV SCH ×2 (03:36→15:34)
[2019-11-02] MEDS: VANCOMYCIN 1 G PREMIX 200 ML IV SCH (04:52)
[2019-11-02] MEDS: HYDRALAZINE HCL 25MG TABLET PO SCH ×2 (06:12→13:31)
[2019-11-02] MEDS: ASPIRIN 81MG TABLET PEG SCH (08:42)
[2019-11-02] MEDS: PANTOPRAZOLE SODIUM 40 MG/VIAL IV SCH (08:42)
[2019-11-02] MEDS: ASCORBIC ACID 500 MG TABLET PO SCH (08:42)
[2019-11-02] MEDS: ZINC SULFATE 220 MG ( 50 ) CAPSULE PO SCH (08:42)
[2019-11-02] MEDS: ENOXAPARIN 30MG/0.3ML SYR SUBCUT SCH (08:46)
[2019-11-02] MEDS ORDERED: AMLODIPINE 10MG TABLET PO SCH (09:00)
== END 2019-11-02 19:58 | DRG 720 ==
LOC: ER 09:50 → MICUSO 12:37 → EDBEDREQTM 12:49 → EDBEDREQ 12:49 → SUPCPDRO 12:57 → CVICU 10-24 07:25 → 3WST 10-31 22:30
PROVIDERS: ADMIT Internal Medicine; ATTEND Internal Medicine
PROC: 5A1955Z Respiratory Ventilation, Greater than 96 Consecutive Hours (ICD-10-PCS; principal; 2019-10-23)
PROC: 0BH17EZ Insertion of Endotracheal Airway into Trachea, Via Natural or Artificial Opening (ICD-10-PCS; 2019-10-23)
PROC: B54BZZA Ultrasonography of Right Lower Extremity Veins, Guidance (ICD-10-PCS; 2019-10-23)
PROC: 06HY33Z Insertion of Infusion Device into Lower Vein, Percutaneous Approach (ICD-10-PCS; 2019-10-23)
PROC: 02HV33Z Insertion of Infusion Device into Superior Vena Cava, Percutaneous Approach (ICD-10-PCS; 2019-10-24)
PROC: B548ZZA Ultrasonography of Superior Vena Cava, Guidance (ICD-10-PCS; 2019-10-24)
DX: A41.02 Sepsis due to Methicillin resistant Staphylococcus aureus (principal); E43 Unspecified severe protein-calorie malnutrition; E83.51 Hypocalcemia; I27.20 Pulmonary hypertension, unspecified; N39.0 Urinary tract infection, site not specified; R65.21 Severe sepsis with septic shock; I21.A1 Myocardial infarction type 2; E87.6 Hypokalemia; G30.9 Alzheimer's disease, unspecified; F02.80 Dementia in other diseases classified elsewhere, unspecified severity, without behavioral disturbance, psychotic disturbance, mood disturbance, and anxiety; I48.19 Other persistent atrial fibrillation; N18.9 Chronic kidney disease, unspecified; J69.0 Pneumonitis due to inhalation of food and vomit; N17.0 Acute kidney failure with tubular necrosis; E11.65 Type 2 diabetes mellitus with hyperglycemia; G92 Toxic encephalopathy; D63.8 Anemia in other chronic diseases classified elsewhere; B96.5 Pseudomonas (aeruginosa) (mallei) (pseudomallei) as the cause of diseases classified elsewhere; D68.59 Other primary thrombophilia; D69.6 Thrombocytopenia, unspecified; E03.9 Hypothyroidism, unspecified; E11.22 Type 2 diabetes mellitus with diabetic chronic kidney disease; E78.00 Pure hypercholesterolemia, unspecified; E78.5 Hyperlipidemia, unspecified; E87.0 Hyperosmolality and hypernatremia; E87.1 Hypo-osmolality and hyponatremia; E87.3 Alkalosis; A41.52 Sepsis due to Pseudomonas; I13.0 Hypertensive heart and chronic kidney disease with heart failure and stage 1 through stage 4 chronic kidney disease, or unspecified chronic kidney disease; J44.0 Chronic obstructive pulmonary disease with (acute) lower respiratory infection; I50.9 Heart failure, unspecified; G96.0 Cerebrospinal fluid leak; J96.21 Acute and chronic respiratory failure with hypoxia; J96.22 Acute and chronic respiratory failure with hypercapnia; Z86.73 Personal history of transient ischemic attack (TIA), and cerebral infarction without residual deficits; Z86.74 Personal history of sudden cardiac arrest; Z93.1 Gastrostomy status; Z79.2 Long term (current) use of antibiotics; Z79.01 Long term (current) use of anticoagulants; Z79.4 Long term (current) use of insulin; Z79.899 Other long term (current) drug therapy; Z68.37 Body mass index [BMI] 37.0-37.9, adult; D18.1 Lymphangioma, any site
CPT/HCPCS: 36415; 36600; 70551; 71045; 71250; 76937; 80048; 80053; 80061; 80202; 81003; 82270; 82375; 82607; 82746; 82805; 82962; 83036; 83540; 83550; 83605; 83735; 83880; 84100; 84132; 84145; 84439; 84443; 84478; 84484; 85025; 85027; 87015; 87045; 87070; 87077; 87186; 87427; 87449; 87493; 93005; 93306; 93970; 94002; 94003; 94640; 96365; 99291; C1725; C9113; J0713; J1265; J1650; J1815; J1940; J2060; J2250; J2270; J2370; J2543; J2704; J3010; J3370; J3480; J3490; J7030; J7050; J7060; P9047

== ENCOUNTER 2019-11-16 09:50 | Emergency (ER) | payer MEDICARE, MEDICAID ==
[~2019-11-16] VITALS: Ht 157.5 cm; Wt 87.0 kg
[2019-11-16 12:13] LABS: HEMATOCRIT. 26.6 % (36.0-48.0); HEMOGLOBIN. 8.6 g/dL (12.0-16.0); MEAN CORPUSCULAR HEMOGLOBIN 31.6 pg (28.0-32.0); MEAN CORPUSCULAR VOLUME 97.3 fL (81.0-99.0); MEAN PLATELET VOLUME 9.1 fl (7.4-10.4); PLATELET 176 x1000/uL (130-400); RED BLOOD CELL COUNT 2.73 mill/uL (4.2-5.4); RED CELL DISTRIBUTION WIDTH 21.5 % (11.6-14.6)
[2019-11-16 12:20] LABS: CHLORIDE 99 mEq/L (98-107)
[2019-11-16 12:23] LABS: PROTHROMBIN TIME 10.6 sec (9.6-11.0)
[2019-11-16 12:56] LABS: PLATELET ESTIMATE NORMAL
[2019-11-16] MEDS ORDERED: SODIUM CHLORIDE 0.9% 1,000 ML IV ONE (13:45)
[2019-11-16] MEDS ORDERED: LIDOCAINE HCL 1% 20ML VIAL (Pyxis) INJ ONE (13:51)
[2019-11-16 20:00] VITALS: BP 154/59
== END 2019-11-16 20:25 ==
LOC: ER 09:50 → EDBEDREQ 13:22 → EDBEDREQTM 13:22 → EDBEDREQ 14:57 → ENRESERV 15:51 → CANRESERV 15:51 → CANBEDREQ 17:49 → ER 20:25
DX: T82.524A Displacement of infusion catheter, initial encounter (principal); S50.12XA Contusion of left forearm, initial encounter; R06.02 Shortness of breath; N17.9 Acute kidney failure, unspecified; E78.00 Pure hypercholesterolemia, unspecified; I10 Essential (primary) hypertension; I25.2 Old myocardial infarction; F03.90 Unspecified dementia, unspecified severity, without behavioral disturbance, psychotic disturbance, mood disturbance, and anxiety; E11.9 Type 2 diabetes mellitus without complications; Z98.890 Other specified postprocedural states; Z87.891 Personal history of nicotine dependence; Z79.4 Long term (current) use of insulin; Z79.899 Other long term (current) drug therapy; X58.XXXA Exposure to other specified factors, initial encounter; Y93.89 Activity, other specified; Y92.89 Other specified places as the place of occurrence of the external cause; Y99.8 Other external cause status
CPT/HCPCS: 36415; 71045; 76937; 80053; 85025; 85610; 93005; 96360; 99285; C1725; J3490